=== PATIENT | male | born 1945 | race Caucasian/White ===

== ENCOUNTER 2019-02-28 10:43 | Emergency (ER) | payer MEDICARE, OTHER ==
--- NOTE | 2019-02-28 11:13 | ER Document Report ---
ED General - General Chief Complaint: Decreased Appetite Stated Complaint: ALTERED MENTAL STATUS Time Seen by Provider: 02/28/19 10:56 Mode of Arrival: Medic Information source: Patient, Relative, Emergency Med Personnel, [facility] Records Notes: This 73-year-old male patient brought to the emergency room from [facility] for mental status changes. His niece with him reports that he is usu ally up, dressed, and in the hallway joking with people and at breakfast in the morning. Today he remained in bed, was not himself. He would not take his medications. He did not seem hungry. He had urinated on himself which he does not normally ever do. He does have some dementia. - Related Data Allergies/Adverse Reactions: Penicillins Allergy (Severe, Verified 02/28/19 11:27) Past Medical History - General Information source: Patient, Relative, [facility] Records, Outside Facility Records Cannot obtain history due to: Dementia - Social History Smoking Status: Unknown if Ever Smoked Cigarette use (# per day): No Chew tobacco use (# tins/day): No Smoking Education Provided: No Frequency of alcohol use: None Drug Abuse: None Occupation: Retired Lives with: [employer] Family History: Reviewed & Not Pertinent - Past Medical History Cardiac Medical History: Reports: Hx Hypertension Musculoskeletal Medical History: Reports Other - Polio affecting the right lower extremity Psychiatric Medical History: Reports: Hx Dementia Surgical Hx: Negative Review of Systems - Review of Systems Constitutional: No symptoms reported EENT: No symptoms reported Cardiovascular: No symptoms reported Respiratory: No symptoms reported Gastrointestinal: No symptoms reported Genitourinary: No symptoms reported, See HPI Musculoskeletal: No symptoms reported Skin: No symptoms reported Hematologic/Lymphatic: No symptoms reported Neurological/Psychological: See HPI Physical Exam - Vital signs Vitals: Temp Pulse Resp BP Pulse Ox 98.3 F 60 16 161/77 H 94 02/28/19 10:44 02/28/19 10:44 02/28/19 10:44 02/28/19 10:44 02/28/19 10:44 Interpretation: Hypertensive - General General appearance: Appears well, Alert In distress: None - HEENT Head: Normocephalic, Atraumatic Eyes: Normal Pupils: PERRL Nasal: Normal Mouth/Lips: Normal Mucous membranes: Normal Pharynx: Normal Neck: Normal - Respiratory Respiratory status: No respiratory distress Chest status: Nontender Breath sounds: Normal - Cardiovascular Rhythm: Bradycardia Heart sounds: Normal auscultation Murmur: No - Abdominal Inspection: Normal Distension: No distension Bowel sounds: Normal Tenderness: Nontender - Back Back: Normal - Extremities General upper extremity: Normal inspection General lower extremity: Other - Right ankle is grossly deformed appearing in the right lower leg is atrophied compared to the left lower extremity. - Neurological Neuro grossly intact: Yes - Except for his memory deficits - Psychological Associated symptoms: Normal affect, Normal mood - Patient is pleasantly amanda ed. He can carry on conversation, but he cannot remember from 1 minute to the next. Course - Re-evaluation Re-evalutation: 02/28/19 13:43 Patient is sitting up in the bed alert talking eating lunch. His niece reports that he is back to his baseline. He is also asking her to get him a chili dog. She is willing to take him in her car back to [facility]. - Vital Signs Vital signs: Temp Pulse Resp BP Pulse Ox 98.3 F 60 16 161/77 H 94 02/28/19 10:44 02/28/19 10:44 02/28/19 10:44 02/28/19 10:44 02/28/19 10:44 - Laboratory Result Diagrams: 02/28/19 10:30 02/28/19 10:30 Laboratory results interpreted by me: 02/28/19 02/28/19 10:30 10:30 MCV 99 H RDW 14.7 H Calcium 10.7 H - Diagnostic Test Radiology reviewed: Image reviewed, Reports reviewed - CT scan shows old left basal ganglia infarct with nothing acute. CXR-no acute findings - EKG Interpretation by Me EKG shows normal: Sinus rhythm, [place], Intervals, QRS Complexes. abnormal: ST-T Waves - Borderline inferior T abnormalities Rate: Normal - 63 Rhythm: NSR Voltage: Consistant with LVH When compared to previous EKG there are: Previous EKG unavailable Discharge - Discharge Clinical Impression: Altered mental status Qualifiers: Altered mental status type: unspecified Qualified Code(s): R41.82 - Altered men adelfo status, unspecified Dementia Qualifiers: Dementia type: Alzheimer's disease Alzheimer's disease onset: unspecified onset Dementia behavioral disturbance: without behavioral disturbance Qualified Code(s): G30.9 - Alzheimer's disease, unspecified; F02.80 - Dementia in other diseases classified elsewhere without behavioral disturbance Condition: Stable Disposition: HOME, SELF-CARE Additional Instructions: Altered Mental Status An altered mental status is a change in the normal functioning of the brain. This alteration of function can range from minor decreased brain function with some forgetfulness and confusion to complete loss of consciousness and coma. There are many possible causes of an altered mental status and include brain injuries such as trauma or strokes, problems with oxygen supply to the brain, fever and infections of the brain and/or elsewhere in the body, metabolic abnormalities such as low or high blood sugar, overdoses or excessive medication ingestion, and mental and psychiatric illnesses. Sometimes the altered mental status resolves and a definite cause is not determined. If a cause for your altered mental status was found, it has likely been corrected. Your evaluation has not shown any condition that requires that you be admitted to the hospital. It is believed that you are safe to leave and return to your home. If you have a return of your symptoms, you should return for re-evaluation. RETURN TO THE EMERGENCY ROOM IF ANY NEW OR WORSENING SYMPTOMS.
[2019-02-28] MEDS ORDERED: LISINOPRIL 10 MG TABLET PO ONE (11:18)
[2019-02-28] MEDS ORDERED: HYDROCHLOROTHIAZIDE 12.5 MG TABLET PO ONE (11:19)
--- NOTE | 2019-02-28 12:05 | RADIOLOGY REPORT (SQ) ---
EXAM DESCRIPTION: CT HEAD WITHOUT COMPLETED DATE/TIME: 02/28/2019 11:34 am REASON FOR STUDY: Acute mental status deterioration COMPARISON: None. TECHNIQUE: Axial images acquired through the brain without intravenous contrast. Images reviewed wi th bone, brain and subdural windows. Additional sagittal and coronal reconstructions were generated. Images stored on PACS. All CT scanners at this facility use dose modulation, iterative reconstruction, and/or weight based d osing when appropriate to reduce radiation dose to as low as reasonably achievable (ALARA). [facility]: Dose Right [facility]: CareDose [facility]: Dose Right [facility]: Teradose 4D [facility]: [employer] RADIATION DOSE: CT Rad equipment meets quality standard of care and radiation dose reduction techniq ues were employed. CTDIvol: 53.2 mGy. DLP: 1124 mGy-cm. mGy. LIMITATIONS: None. FINDINGS: VENTRICLES: Normal size and contour. CEREBRUM: No masses. No hemorrhage. No midline shift. No evidence for acute infarction. Normal gra y/white matter differentiation. No areas of low density in the white matter. Focal old left-sided la rge basal ganglia infarct. CEREBELLUM: No masses. No hemorrhage. No alteration of density. No evidence for acute infarction. EXTRAAXIAL SPACES: No fluid collections. No masses. ORBITS AND GLOBE: No intra- or extraconal masses. Normal contour of globe without masses. CALVARIUM: No fracture. PARANASAL SINUSES: No fluid or mucosal thickening. SOFT TISSUES: No mass or hematoma. OTHER: No other significant finding. IMPRESSION: No acute findings. Old left basal ganglia infarct. EVIDENCE OF ACUTE STROKE: NO. COMMENT: Quality ID # [id number]: Final reports with documentation of one or more dose reduction techniques (e.g., Automated exposure control, adjustment of the mA and/or kV according to patient size, use of iterative reconstruction technique) TECHNICAL DOCUMENTATION: JOB ID: [id number] [employer]- All Rights Reserved Reading location - IP/workstation name: [email or web address]
--- NOTE | 2019-02-28 12:09 | RADIOLOGY REPORT (SQ) ---
EXAM DESCRIPTION: CHEST SINGLE VIEW COMPLETED DATE/TIME: 02/28/2019 11:54 am REASON FOR STUDY: Acute mental status deterioration COMPARISON: None. EXAM PARAMETERS: NUMBER OF VIEWS: One view. TECHNIQUE: Single frontal radiographic view of the chest acquired. RADIATION DOSE: NA LIMITATIONS: None. FINDINGS: LUNGS AND PLEURA: No opacities, masses or pneumothorax. No pleural effusion. MEDIASTINUM AND HILAR STRUCTURES: No masses. Contour normal. HEART AND VASCULAR STRUCTURES: Heart normal in size. Normal vasculature. BONES: No acute findings. HARDWARE: None in the chest. OTHER: No other significant finding. IMPRESSION: NO ACUTE RADIOGRAPHIC FINDING IN THE CHEST. TECHNICAL DOCUMENTATION: JOB ID: [id number] [employer]- All Rights Reserved Reading location - IP/workstation name: [email or web address]
[2019-02-28 12:12] LABS: APPEARANCE,URINE CLEAR; BILIRUBIN,URINE NEGATIVE (NEGATIVE); COLOR,URINE YELLOW; GLUCOSE, URINE NEGATIVE (NEGATIVE); KETONES,URINE NEGATIVE (NEGATIVE); LEUKOCYTE ESTERASE,URINE NEGATIVE (NEGATIVE); NITRITE,URINE NEGATIVE (NEGATIVE); PROTEIN,URINE NEGATIVE (NEGATIVE); URINE SPECIFIC GRAVITY 1.013; UROBILINOGEN,URINE NEGATIVE mg/dL (<2.0)
[2019-02-28 12:14] LABS: ABSOLUTE BASOPHILS # (AUTO) 0.1 10^3/uL (0.0-0.2); ABSOLUTE EOSINOPHILS # (AUTO) 0.2 10^3/uL (0.0-0.6); ABSOLUTE LYMPHOCYTES (AUTO) 0.9 10^3/uL (0.5-4.7); ABSOLUTE MONOCYTES (AUTO) 0.5 10^3/uL (0.1-1.4); ABSOLUTE NEUT (AUTO) 4.4 10^3/uL (1.7-8.2); HEMATOCRIT 46.9 % (37.9-51.0); HEMOGLOBIN 15.6 g/dL (13.5-17.0); LYMPHOCYTES % (AUTO) 15.4 % (13-45); MEAN CORPUSCULAR HEMOGLOBIN 32.9 pg (27.0-33.4); MEAN CORPUSCULAR HGB CONC 33.4 g/dL (32.0-36.0); MEAN CORPUSCULAR VOLUME 99 fl (80-97); MONOCYTES % (AUTO) 8.5 % (3-13); PLATELET COUNT 227 10^3/uL (150-450); RED BLOOD COUNT 4.76 10^6/uL (4.35-5.55); RED CELL DISTRIBUTION WIDTH 14.7 % (11.5-14.0); SEGMENTED NEUTROPHILS % (AUTO) 72.1 % (42-78); TOTAL CELLS COUNTED % (AUTO) 100 %
[2019-02-28 12:22] LABS: ALANINE AMINOTRANSFERASE 26 U/L (21-72); ALBUMIN 3.9 g/dL (3.5-5.0); ALKALINE PHOSPHATASE 52 U/L (38-126); ANION GAP 11 (5-19); ASPARTATE AMINO TRANSFERASE 23 U/L (17-59); BILIRUBIN,DIRECT 0.4 mg/dL (0.0-0.4); BILIRUBIN,TOTAL 1.2 mg/dL (0.2-1.3); BLOOD UREA NITROGEN 16 mg/dL (7-20); CALCIUM 10.7 mg/dL (8.4-10.2); CARBON DIOXIDE 29 mmol/L (22-30); CHLORIDE 101 mmol/L (98-107); CREATINE KINASE 72 U/L (55-170); GLUCOSE 84 mg/dL (75-110); POTASSIUM 4.4 mmol/L (3.6-5.0); SODIUM 140.6 mmol/L (137-145); TOTAL PROTEIN 7.4 g/dL (6.3-8.2)
[2019-02-28 17:58] VITALS: BP 134/93
--- NOTE | 2019-02-28 22:38 | EKG REPORT ---
SEVERITY:- ABNORMAL ECG - SINUS RHYTHM LEFT VENTRICULAR HYPERTROPHY BORDERLINE T ABNORMALITIES, INFERIOR LEADS : Confirmed by: Manisha Munoz 28-Feb-2019 22:37:14
== END 2019-02-28 14:05 | disposition home or self-care (01) ==
LOC: ER 10:43
DX: R41.82 Altered mental status, unspecified (principal); G30.9 Alzheimer's disease, unspecified; F02.80 Dementia in other diseases classified elsewhere, unspecified severity, without behavioral disturbance, psychotic disturbance, mood disturbance, and anxiety; R63.0 Anorexia; I10 Essential (primary) hypertension
CPT/HCPCS: 93005; 99285; 36415; 82962; 82550; 85025; 80053; 81001; 84484; 83605; 71045; 70450; 93010; A9270 ×2

== ENCOUNTER 2019-06-03 10:19 | Emergency (ER) | payer MEDICARE, OTHER ==
--- NOTE | 2019-06-03 11:10 | ER Document Report ---
ED General - General Chief Complaint: Altered Mental Status Stated Complaint: AGGITATION Time Seen by Provider: 06/03/19 11:08 TRAVEL OUTSIDE OF THE [place] IN LAST 30 DAYS: No - HPI Notes: Patient was sent from a nursing facility. They claim the patient was agitated today and threw an object. They asked the patient be evaluated. Patient does have a history of dementia and is a poor historian. Patient denies any complaints at this time. Patient does not appear agitated at this time. Patient's symptoms appear to have been abrupt in onset. It is unknown what made them better or worse. It is unknown if there is any radiation of symptoms. The degree of symptoms cannot be measured. There is no known radiation of the symptoms. No other recent illnesses or problems are known. - Related Data Allergies/Adverse Reactions: Penicillins Allergy (Severe, Verified 02/28/19 11:27) Past Medical History - General Information source: Outside Facility Records - Social History Smoking Status: Never Smoker Chew tobacco use (# tins/day): No Frequency of alcohol use: None Drug Abuse: None Family History: Reviewed & Not Pertinent Patient has suicidal ideation: No Patient has homicidal ideation: No - Past Medical History Cardiac Medical History: Reports: Hx Hypercholesterolemia, Hx Hypertension Renal/ Medical History: Denies: Hx Peritoneal Dialysis Musculoskeletal Medical History: Reports Hx Arthritis Psychiatric Medical History: Reports: Hx Dementia Review of Systems - Review of Systems Notes: Due to patient's dementia he is unable to give a review of symptoms -: Yes ROS unobtainable due to patient's medical condition Physical Exam - Vital signs Vitals: Temp Pulse Resp BP Pulse Ox 98.5 F 82 14 150/80 H 98 06/03/19 10:26 06/03/19 10:26 06/03/19 10:26 06/03/19 10:26 06/03/19 10:26 Interpretation: Normal - General General appearance: Appears well, Alert - HEENT Head: Normocephalic, Atraumatic Eyes: Normal Pupils: PERRL - Respiratory Respiratory status: No respiratory distress Chest status: Nontender Breath sounds: Normal Chest palpation: Normal - Cardiovascular Rhythm: Regular Heart sounds: Normal auscultation Murmur: No - Abdominal Inspection: Normal Distension: No distension Bowel sounds: Normal Tenderness: Nontender Organomegaly: No organomegaly - Back Back: Normal, Nontender - Extremities General upper extremity: Normal inspection, Nontender, Normal color, Normal ROM, Normal temperature General lower extremity: Normal inspection, Nontender, Normal color, Normal ROM, Normal temperature, Normal weight bearing. No: Nick's sign - Neurological Neuro grossly intact: Yes Cognition: Normal Orientation: Disoriented to place, Disoriented to time [place] Coma Scale Eye Opening: Spontaneous [place] Coma Scale Verbal: Confused [place] Coma Scale Motor: Obeys Commands [place] Coma Scale Total: 14 Speech: Normal Motor strength normal: LUE, RUE, LLE, RLE Sensory: Normal - Psychological Associated symptoms: Normal affect, Normal mood - Skin Skin Temperature: Warm Skin Moisture: Dry Skin Color: Normal Course - Re-evaluation Re-evalutation: 06/03/19 13:43 Patient is still resting comfortably in the bed. I discussed the patient's care with the patient's family. He has an equivocal urinary result. Due to his increase of agitation I will place him on a 5-day course of antibiotics. I do feel the patient is stable for discharge. - Vital Signs Vital signs: Temp Pulse Resp BP Pulse Ox 98.5 F 87 19 156/68 H 98 06/03/19 10:26 06/03/19 10:52 06/03/19 10:52 06/03/19 10:52 06/03/19 10:52 - Laboratory Result Diagrams: 06/03/19 11:45 06/03/19 11:45 Laboratory results interpreted by me: 06/03/19 06/03/19 06/03/19 11:45 11:45 13:10 MCV 98 H Seg Neutrophils % 80.5 H Lymphocytes % 9.1 L BUN 23 H Glucose 123 H Urine Urobilinogen 2.0 H Laboratory 06/03/19 06/03/19 06/03/19 11:45 11:45 13:10 WBC 8.5 RBC 4.51 Hgb 14.8 Hct 44.2 MCV 98 H MCH 32.7 MCHC 33.4 RDW 13.8 Plt Count 207 Seg Neutrophils % 80.5 H Lymphocytes % 9.1 L Monocytes % 8.5 Eosinophils % 1.5 Basophils % 0.4 Absolute Neutrophils 6.8 Absolute Lymphocytes 0.8 Absolute Monocytes 0.7 Absolute Eosinophils 0.1 Absolute Basophils 0.0 Sodium 141.5 Potassium 4.3 Chloride 106 Carbon Dioxide 29 Anion Gap 7 BUN 23 H Creatinine 1.12 Est GFR ( Amer) > 60 Est GFR (Non-Af Amer) > 60 Glucose 123 H Calcium 10.1 Total Bilirubin 0.6 Direct Bilirubin 0.3 Neonat Total Bilirubin Not Reportable Neonat Direct Bilirubin Not Reportable Neonat Indirect Bili Not Reportable AST 19 ALT 16 Alkaline Phosphatase 58 Total Protein 6.4 Albumin 3.7 Urine Color YELLOW Urine Appearance SLIGHTLY-CLOUDY Urine pH 5.0 Ur Specific [place] 1.025 Urine Protein NEGATIVE Urine Glucose (UA) NEGATIVE Urine Ketones NEGATIVE Urine Blood NEGATIVE Urine Nitrite NEGATIVE Urine Bilirubin NEGATIVE Urine Urobilinogen 2.0 H Ur Leukocyte Esterase NEGATIVE Urine RBC 1-5 Urine WBC 1-5 Calcium Oxalate Crystal MANY Urine Bacteria 2+ Urine Mucus 4+ Urine Yeast PRESENT Urine Ascorbic Acid NEGATIVE - Diagnostic Test Radiology results interpreted by me: 06/03/19 13:[address] 06/03/19 11:08 IMPRESSION: No acute intracranial pathology. Unchanged lacunar infarction of the left basal ganglia. EVIDENCE OF ACUTE STROKE: NO. Discharge - Discharge Clinical Impression: Urinary tract infection Qualifiers: Urinary tract infection type: site unspecified Hematuria presence: without hematuria Qualified Code(s): N39.0 - Urinary tract infection, site not specified Condition: Stable Disposition: HOME, SELF-CARE Instructions: Urinary Tract Infection ([facility]), Trimethoprim-Sulfa ([facility]) Additional Instructions: Please be rechecked by your primary care physician in the next 1 to 2 days Prescriptions: Sulfamethoxazole/Trimethoprim [Bactrim Ds Tablet] 1 each PO BID 5 Days #10 tablet
[2019-06-03 12:04] LABS: ABSOLUTE EOSINOPHILS # (AUTO) 0.1 10^3/uL (0.0-0.6); ABSOLUTE LYMPHOCYTES (AUTO) 0.8 10^3/uL (0.5-4.7); ABSOLUTE MONOCYTES (AUTO) 0.7 10^3/uL (0.1-1.4); ABSOLUTE NEUT (AUTO) 6.8 10^3/uL (1.7-8.2); BASOPHILS % (AUTO) 0.4 % (0-2); EOSINOPHILS % (AUTO) 1.5 % (0-6); HEMATOCRIT 44.2 % (37.9-51.0); HEMOGLOBIN 14.8 g/dL (13.5-17.0); LYMPHOCYTES % (AUTO) 9.1 % (13-45); MEAN CORPUSCULAR HEMOGLOBIN 32.7 pg (27.0-33.4); MEAN CORPUSCULAR HGB CONC 33.4 g/dL (32.0-36.0); MEAN CORPUSCULAR VOLUME 98 fl (80-97); MONOCYTES % (AUTO) 8.5 % (3-13); PLATELET COUNT 207 10^3/uL (150-450); RED BLOOD COUNT 4.51 10^6/uL (4.35-5.55); RED CELL DISTRIBUTION WIDTH 13.8 % (11.5-14.0); SEGMENTED NEUTROPHILS % (AUTO) 80.5 % (42-78); TOTAL CELLS COUNTED % (AUTO) 100 %; WHITE BLOOD COUNT 8.5 10^3/uL (4.0-10.5)
--- NOTE | 2019-06-03 12:16 | RADIOLOGY REPORT (SQ) ---
EXAM DESCRIPTION: CT HEAD WITHOUT COMPLETED DATE/TIME: 06/03/2019 12:01 pm REASON FOR STUDY: ams COMPARISON: 02/28/2019 TECHNIQUE: Axial images acquired through the brain without intravenous contrast. Images reviewed wi th bone, brain and subdural windows. Additional sagittal and coronal reconstructions were generated. Images stored on PACS. All CT scanners at this facility use dose modulation, iterative reconstruction, and/or weight based d osing when appropriate to reduce radiation dose to as low as reasonably achievable (ALARA). [facility]: Dose Right [facility]: CareDose [facility]: Dose Right [facility]: Teradose 4D [facility]: Smart [employer] RADIATION DOSE: CT Rad equipment meets quality standard of care and radiation dose reduction techniq ues were employed. CTDIvol: 53.2 mGy. DLP: 1150 mGy-cm. mGy. LIMITATIONS: None. FINDINGS: VENTRICLES: Normal size and contour. CEREBRUM: No masses. No hemorrhage. No midline shift. No evidence for acute infarction. Normal gra y/white matter differentiation. Redemonstrated lacunar infarction of the left basal ganglia. CEREBELLUM: No masses. No hemorrhage. No alteration of density. No evidence for acute infarction. EXTRAAXIAL SPACES: No fluid collections. No masses. ORBITS AND GLOBE: No intra- or extraconal masses. Normal contour of globe without masses. CALVARIUM: No fracture. PARANASAL SINUSES: No fluid or mucosal thickening. SOFT TISSUES: No mass or hematoma. OTHER: No other significant finding. IMPRESSION: No acute intracranial pathology. Unchanged lacunar infarction of the left basal ganglia . EVIDENCE OF ACUTE STROKE: NO. COMMENT: Quality ID # [id number]: Final reports with documentation of one or more dose reduction techniques (e.g., Automated exposure control, adjustment of the mA and/or kV according to patient size, use of iterative reconstruction technique) TECHNICAL DOCUMENTATION: JOB ID: [id number] [employer]- All Rights Reserved Reading location - IP/workstation name: [email or web address]
[2019-06-03 12:22] LABS: ALBUMIN 3.7 g/dL (3.5-5.0); ALKALINE PHOSPHATASE 58 U/L (38-126); ANION GAP 7 (5-19); ASPARTATE AMINO TRANSFERASE 19 U/L (17-59); BILIRUBIN,DIRECT 0.3 mg/dL (0.0-0.4); BILIRUBIN,TOTAL 0.6 mg/dL (0.2-1.3); BLOOD UREA NITROGEN 23 mg/dL (7-20); CALCIUM 10.1 mg/dL (8.4-10.2); CARBON DIOXIDE 29 mmol/L (22-30); CHLORIDE 106 mmol/L (98-107); GLUCOSE 123 mg/dL (75-110); POTASSIUM 4.3 mmol/L (3.6-5.0); TOTAL PROTEIN 6.4 g/dL (6.3-8.2)
[2019-06-03 13:19] VITALS: BP 156/68
[2019-06-03 13:21] LABS: APPEARANCE,URINE SLIGHTLY-CLOUDY; BILIRUBIN,URINE NEGATIVE (NEGATIVE); COLOR,URINE YELLOW; GLUCOSE, URINE NEGATIVE (NEGATIVE); KETONES,URINE NEGATIVE (NEGATIVE); LEUKOCYTE ESTERASE,URINE NEGATIVE (NEGATIVE); NITRITE,URINE NEGATIVE (NEGATIVE); PROTEIN,URINE NEGATIVE (NEGATIVE); URINE SPECIFIC GRAVITY 1.025
[2019-06-03 13:26] LABS: ADD MANUAL MICROSCOPIC YES
[2019-06-03 13:39] LABS: BACTERIA,URINE 2+ /HPF; CALCIUM OXALATE CRYSTALS,UR MANY /HPF; YEAST,URINE PRESENT
== END 2019-06-03 13:05 | disposition home or self-care (01) ==
LOC: ER 10:19
DX: N39.0 Urinary tract infection, site not specified (principal); R41.82 Altered mental status, unspecified; F03.90 Unspecified dementia, unspecified severity, without behavioral disturbance, psychotic disturbance, mood disturbance, and anxiety; I10 Essential (primary) hypertension
CPT/HCPCS: 36415; 70450; 80053; 81001; 85025; 99285

== ENCOUNTER 2019-10-21 21:00 | Emergency (ER) | payer MEDICARE ==
--- NOTE | 2019-10-21 23:32 | RADIOLOGY REPORT (SQ) ---
EXAM DESCRIPTION: XR FOOT 3 OR MORE VIEWS COMPLETED DATE/TME: 10/21/2019 00:00 CLINICAL HISTORY: 74 years ,Male pain/injury COMPARISON: None. TECHNIQUE: RIGHT foot, Three view FINDINGS: Soft tissue swelling around the foot. There is chronic-appearing fragmentation along the distal fibula. Irregularity involving the proximal aspect of the fifth proximal phalanx which may reflect fracture. No radiopaque foreign object noted. No significant ankle effusion noted. IMPRESSION: Soft tissue swelling around the hindfoot Question nondisplaced fracture of the proximal aspect of the proximal fifth phalanx
--- NOTE | 2019-10-22 04:54 | ER Document Report ---
HPI - HPI Time Seen by Provider: 10/22/19 02:41 Pain Level: Denies Context: Patient is a 74-year-old male that comes emergency department for chief complaint of right foot swelling. Reportedly patient was saying this was hurting, patient denies pain. He denies injury. He denies any other complaints. Patient with a known chronic deformity of the right foot, has seen orthopedics/podiatry and has a custom shoe for this already. No wounds, bleeding, drainage, fever, or any other symptoms reported. No other complaints. He comes from [facility], has a history of dementia. - REPRODUCTIVE Reproductive: DENIES: : - DERM Skin Color: Normal Past Medical History - General Information source: Patient, Outside Facility Records - Social History Smoking Status: Never Smoker Frequency of alcohol use: None Drug Abuse: None Lives with: [facility] Family History: Reviewed & Not Pertinent Patient has suicidal ideation: No Patient has homicidal ideation: No - Past Medical History Cardiac Medical History: Reports: Hx Hypercholesterolemia, Hx Hypertension Renal/ Medical History: Denies: Hx Peritoneal Dialysis Musculoskeletal Medical History: Reports Hx Arthritis Psychiatric Medical History: Reports: Hx Dementia - Immunizations Hx Diphtheria, Pertussis, Tetanus Vaccination: Yes Vertical Provider Document - CONSTITUTIONAL General Appearance: WD/WN, No Apparent Distress - Sleeping but easily aroused - INFECTION CONTROL TRAVEL OUTSIDE OF THE [place] IN LAST 30 DAYS: No - HEENT HEENT: Atraumatic, Normocephalic - NECK Neck: Normal Inspection - RESPIRATORY Respiratory: Breath Sounds Normal, No Respiratory Distress - CARDIOVASCULAR Cardiovascular: Regular Rate, Regular Rhythm - GI/ABDOMEN Gastrointestinal: Abdomen Soft, Abdomen Non-Tender - BACK Back: Normal Inspection - MUSCULOSKELETAL/EXTREMETIES Musculoskeletal/Extremeties: TIMOTEO, FROM. negative: Tender - There is deformity of the right lower extremity especially at the right ankle laterally. There is soft tissue swelling and chronic calluses over the lateral aspect at the base of the foot and over the ankle. There is no tenderness over the foot or over the toes. There are no wounds noted. No significant erythema or warmth. - NEURO Level of Consciousness: Awake, Alert, Appropriate - DERM Integumentary: Warm, Dry. negative: No Rash - There is an erythematous area underneath the bartholomew line on the chin and neck, a few areas with somewhat inflamed appearance, no vesicles, bulla, induration, fluctuance, pustules. Course - Re-evaluation Re-evalutation: Patient's foot exam appears to be chronic, he appears to walk on this, he has a specialized shoe for the right foot. There is no infection noted on exam. X- ray was reviewed, shows questionable fracture of the fifth digit of the foot, I do not visualize this, in addition to this patient has no tenderness on exam ove r the areas in question or over the foot in general. Because of the lack of tenderness I have a low suspicion of fracture. Patient continues to deny pain in the foot. In addition to this patient will have difficulty walking and the area will be difficult to splint. I discussed with Dr. Turner, he evaluated the patient at bedside, he does not recommend splinting the patient and feels like his evaluation is chronic. Patient does have what appears to be mild folliculitis as well, he will be treated for this. Provided recommendations with which she will be discharged. Patient is demented at baseline and well-appearing on reevaluation. - Vital Signs Vital signs: Temp Pulse Resp BP Pulse Ox 98.1 F 59 L 16 168/79 H 99 10/21/19 21:21 10/21/19 21:21 10/21/19 21:21 10/21/19 21:21 10/21/19 21:21 Discharge - Discharge Clinical Impression: Swelling of right foot, Folliculitis Condition: Stable Disposition: HOME, SELF-CARE Additional Instructions: The x-ray and the examination do not show any obvious concerning findings with the right foot. Follow-up with podiatry referral for additional management. The examination of the skin of the neck suggests early mild folliculitis, I re commend the Keflex antibiotics as prescribed. Return for any new concerning symptoms including developing or spreading redness, fever, severe pain, or any other concerning or worsening symptoms. Prescriptions: Cephalexin Monohydrate [Keflex 500 mg Capsule] 500 mg PO QID #28 capsule
[2019-10-22 06:45] VITALS: BP 149/68
== END 2019-10-22 05:40 | disposition home or self-care (01) ==
LOC: ER 21:00
DX: L73.9 Follicular disorder, unspecified (principal); M79.89 Other specified soft tissue disorders; E78.00 Pure hypercholesterolemia, unspecified; I10 Essential (primary) hypertension
CPT/HCPCS: 99284

== ENCOUNTER 2020-05-15 12:16 | Emergency (ER) | payer MEDICARE, OTHER ==
[2020-05-15 12:32] VITALS: BP 144/71
--- NOTE | 2020-05-15 13:40 | ER Document Report ---
ED Dizziness/Weakness - General Chief Complaint: Medical Clearance Stated Complaint: ALTERED MENTAL STATUS Time Seen by Provider: 05/15/20 12:50 Primary Care Provider: ELI LAMB MD [Primary Care Provider] - Follow up as needed Mode of Arrival: Medic Information source: Patient Notes: 74-year-old man history of dementia apparently became upset while being inte rviewed by his therapist and took a swing at them. Patient notes that he got upset, presently he is doing well very cooperative and in no distress. Medical history significant for dementia, hypertension, hypercholesterolemia, and arthritis. TRAVEL OUTSIDE OF THE [place] IN LAST 30 DAYS: No - Related Data Allergies/Adverse Reactions: Penicillins Allergy (Severe, Verified 02/28/19 11:27) Home Medications: Cardizem, Xanax, Clopidogrel, Depakote, Levothyroxine, Lisinoprile, Potassium, Sertraline. Past Medical History - Social History Smoking Status: Unknown if Ever Smoked Family History: Reviewed & Not Pertinent - Past Medical History Cardiac Medical History: Reports: Hx Hypercholesterolemia, Hx Hypertension Renal/ Medical History: Denies: Hx Peritoneal Dialysis Musculoskeletal Medical History: Reports Hx Arthritis Psychiatric Medical History: Reports: Hx Dementia - Immunizations Hx Diphtheria, Pertussis, Tetanus Vaccination: Yes Review of Systems - Review of Systems Notes: Constitutional: Negative for fever. HENT: Negative for sore throat. Eyes: Negative for visual changes. Cardiovascular: Negative for chest pain. Respiratory: Negative for shortness of breath. Gastrointestinal: Negative for abdominal pain, vomiting or diarrhea. Genitourinary: Negative for dysuria. Musculoskeletal: Negative for back pain. Skin: Negative for rash. Neurological: + Episode agitation 10 point ROS negative except as marked above and in HPI. Physical Exam - Vital signs Vitals: Temp Pulse Resp BP Pulse Ox 98.1 F 60 16 144/71 H 95 05/15/20 12:31 05/15/20 12:31 05/15/20 12:31 05/15/20 12:05/15/20 12:31 - Notes Notes: PHYSICAL EXAMINATION: Physical Exam: General: Well-nourished well-developed 84-year-old male lying on the stretcher cooperative and in no distress. HEENT: NC/AT, pupils equal round and reactive to light, MM moist,nares clear, oropharynx clear, airway patent Neck: supple, no adenopathy, no masses. Good range of motion Lungs: clear, no wheezing, no rales no rhonchi CVS: Regular rate and rhythm no murmur gallop or rub Abdomen: Soft, active, nontender, no masses, no hepatosplenomegaly Ext: No edema, clubbing or cyanosis. Neuro: Alert and responsive, no focal neurologic findings. Skin: Intact no open lesions, no rash Course - Re-evaluation Re-evalutation: 05/15/20 13:36 Episodic agitation, resolved, patient now cooperative and in no distress. Vital signs are stable and he is alert and responsive. Patient is being discharged from the emergency department to follow-up with his usual providers as needed. - Vital Signs Vital signs: Temp Pulse Resp BP Pulse Ox 98.1 F 60 16 144/71 H 95 05/15/20 12:31 05/15/20 12:31 05/15/20 12:31 05/15/20 12:31 05/15/20 12:31 Discharge - Discharge Clinical Impression: Behavioral problem Dementia Qualifiers: Dementia type: unspecified type Dementia behavioral disturbance: with behavioral disturbance Qualified Code(s): F03.91 - Unspecified dementia with behavioral disturbance Condition: Good Disposition: HOME, SELF-CARE Additional Instructions: You were seen in the emergency department after getting upset today. Since you are now feeling better, we are letting you go home and follow-up with your usual providers as needed. If there are further difficulties or concerns you may return to the emergency department for further evaluation and treatment. HOME CARE INSTRUCTIONS & INFORMATION: Thank you for choosing us for your medical needs. We hope you're satisfied with the care you received. After you leave, you must properly care for your problem and, at the same time, observe its progress. Any condition can change. Some illnesses can change rapidly over hours or days. If your condition worsens, return to the Emergency Department or see your physician promptly. ABOUT YOUR X-RAYS AND EKG'S: If you had an EKG or X-rays taken, they have been read by the Emergency Physician. The X-rays and EKG's will also be read by a Radiologist or Plant Anatomist within 24 hours. If discrepancies are noted, you will be notified by telephone. Please be certain the ED has a correct telephone number & address where you can be reached. Also, realize that some fractures or abnormalities do not show up on initial X-rays. If your symptoms continue, see your physician. ABOUT YOUR LABORATORY TEST: If you had laboratory tests, the results have been reviewed by the Emergency Physician. Some test results (for example cultures) may not be available for several days. You will be contacted if any test result shows you need additional treatment. Please be certain the ED has a correct telephone number and address where you can be reached. ABOUT YOUR MEDICATIONS: You will receive instructions on how to take your medicine on the prescription label you receive. Additional information may be provided by the Pharmacy. If you have questions afterwards, call the ED for clarification or further instructions. Some prescribed medications may cause drowsiness. Do not perform tasks such as driving a car or operating machinery without consulting your Pharmacist. If you feel you need a refill of pain medication, your condition will need re-evaluation. Please do not call for a refill of any medication. ABOUT YOUR SIGNATURE: Signature of this document acknowledges to followin. Understanding that you received emergency treatment and that you may be released before al medical problems are known or treated. Please be certain the ED has a correct phone number & address where you can be reached. 2. Acknowledgement that you will arrange for follow-up care as recommended. 3. Authorization for the Emergency Physician to provide information to your follow-up Physician in order to maximize your care. AT ANY TIME, IF YOUR SYMPTOMS CHANGE SIGNIFICANTLY OR WORSEN OR YOU DEVELOP NEW SYMPTOMS, RETURN TO THE EMERGENCY DEPARTMENT IMMEDIATELY FOR RE-EVALUATION. OUR GOAL IS TO PROVIDE EXCELLENT MEDICAL CARE! WE HOPE THAT WE HAVE MET YOUR EXPECTATIONS DURING YOUR EMERGENCY DEPARTMENT VISIT AND THAT YOU FEEL YOU HAVE RECEIVED EXCELLENT CARE! Referrals: ELI LAMB MD [Primary Care Provider] - Follow up as needed
== END 2020-05-15 14:13 | disposition home or self-care (01) ==
LOC: ER 12:16
DX: F91.9 Conduct disorder, unspecified (principal); F03.91 Unspecified dementia, unspecified severity, with behavioral disturbance; R41.82 Altered mental status, unspecified; Z88.0 Allergy status to penicillin; Z79.899 Other long term (current) drug therapy; I10 Essential (primary) hypertension
CPT/HCPCS: 99284